=== PATIENT | female | born 1995 | race Hispanic/Latino ===

== ENCOUNTER 2025-03-03 14:54 | Inpatient (IN) | payer BC ==
[2025-03-03] MEDS ORDERED: hydrALAZINE 20 MG/ML VIAL SLOW IVP PRN ×3 (15:25→23:58)
[2025-03-03] MEDS ORDERED: Acetaminophen 500 MG TAB PO PRN (15:39)
[2025-03-03] MEDS ORDERED: Carboprost 250 MCG/ML AMP IM PRN (15:39)
[2025-03-03] MEDS ORDERED: HYDROcodone/Acetaminophen 5/325 mg Tablet PO PRN ×2 (15:39)
[2025-03-03] MEDS ORDERED: Lidocaine 1% (PF) 30 ML VIAL SC PRN (15:39)
[2025-03-03] MEDS ORDERED: Methylergonovine 0.2 MG/ML VIAL IM PRN (15:39)
[2025-03-03 15:41] VITALS: BMI 31.8
[2025-03-03] MEDS ORDERED: Oxytocin 30 units/NS 500 ML 500 ML IV SCH (15:45)
[2025-03-03 15:52] LABS: Hematocrit 31.3 % (34.9-44.5); Hemoglobin 10.5 g/dL (12.0-15.5); Mean Corpuscular Hemoglobin 28.9 pg (27.0-33.0); Mean Corpuscular Volume 86.2 fL (81.6-98.3); Platelet Count 344 10x3/uL (150-450); Red Blood Cell (RBC) Count 3.63 10x6/uL (3.90-5.03); White Blood Cell (WBC) Count 10.59 10x3/uL (3.5-10.5)
[2025-03-03 17:10] LABS: Hep B Surf Ag - L&D Non-Reactive S/CO (NonReactive)
[2025-03-03 17:12] LABS: Syphilis Antibody Index 0.05 S/CO (<1.00 Non-Reactive)
[2025-03-03] MEDS: fentaNYL/Ropivacaine Epidural 100 ML ONE (17:26)
[2025-03-03] MEDS ORDERED: Ondansetron PF 4 MG/2 ML Vial IVP PRN (17:31)
[2025-03-03] MEDS ORDERED: diphenhydrAMINE 50 MG/ML VIAL IVP PRN (17:31)
[2025-03-03] MEDS ORDERED: Communication Order-Pharmacy FS SCH (17:45)
[2025-03-03] MEDS ORDERED: fentaNYL 2 mcg/Ropivacaine 0.2% Epidural 100 ML CADD EPIDURAL SCH (17:45)
[2025-03-03] MEDS: Ondansetron PF 4 MG/2 ML Vial IVP PRN (18:19)
[2025-03-03] MEDS: Oxytocin 30 units/NS 500 ML 500 ML IV SCH (21:23)
[2025-03-03 21:48] LABS: Analyzer IN Cardio CS NICU; RapidComm Collect By RN; pH (Cord, venous) 7.381 (7.250-7.350)
[2025-03-03 21:53] LABS: Analyzer IN Cardio CS NICU; RapidComm Collect By RN
[2025-03-03] MEDS: Ibuprofen 800 MG TAB PO PRN (22:59)
[2025-03-03] MEDS ORDERED: Bisacodyl 10 MG SUPP PR PRN (23:58)
[2025-03-03] MEDS ORDERED: Preparation H Ointment 28 GM TUBE PR PRN (23:58)
[2025-03-03] MEDS ORDERED: Milk Of Magnesia 30 ML UDCUP PO PRN (23:58)
[2025-03-04] MEDS: Ibuprofen 800 MG TAB PO SCH (05:46)
[2025-03-04] MEDS: Acetaminophen 325 MG TAB PO PRN (07:13)
[2025-03-04] MEDS: Boostrix 0.5 ML (Tdap) VIAL (>/=7 yrs of age) IM ONE (07:34)
[2025-03-04] MEDS: Ferrous Sulfate 325 MG TAB PO SCH (07:34)
[2025-03-04] MEDS ORDERED: HYDROcodone/Acetaminophen 5/325 mg Tablet PO PRN (09:15)
[2025-03-04] MEDS: HYDROcodone/Acetaminophen 5/325 mg Tablet PO PRN (09:18)
[2025-03-04] MEDS: Benzocaine-Menthol 82.5 ML CAN TOP PRN (09:18)
[2025-03-04] MEDS: Methylergonovine 0.2 MG/ML VIAL IM SCH (12:57)
[2025-03-04] MEDS ORDERED: Methylergonovine 0.2 MG TAB PO PRN (14:37)
[2025-03-04] MEDS ORDERED: Bupivacaine 0.25% HCL 30 ML VIAL ONE (18:19)
[2025-03-04 19:50] VITALS: TEMP 98.2
[2025-03-05 10:14] VITALS: BP 109/65
== END 2025-03-05 11:45 | disposition home or self-care (01) | DRG 807 ==
LOC: CSHLD/OP 14:54 → CSHLD 17:50 → CSHPP 23:49
PROVIDERS: ADMIT Obstetrics & Gynecology; ATTEND Obstetrics & Gynecology
PROC: 10E0XZZ Delivery of Products of Conception, External Approach (ICD-10-PCS; principal; 2025-03-03)
PROC: 10907ZC Drainage of Amniotic Fluid, Therapeutic from Products of Conception, Via Natural or Artificial Opening (ICD-10-PCS; 2025-03-03)
PROC: 10H07YZ Insertion of Other Device into Products of Conception, Via Natural or Artificial Opening (ICD-10-PCS; 2025-03-03)
DX: O77.0 Labor and delivery complicated by meconium in amniotic fluid (principal); Z37.0 Single live birth; Z3A.38 38 weeks gestation of pregnancy; O69.81X0 Labor and delivery complicated by cord around neck, without compression, not applicable or unspecified; Z79.899 Other long term (current) drug therapy; O76 Abnormality in fetal heart rate and rhythm complicating labor and delivery
CPT/HCPCS: 51702; 82805; 85027; 86780; 86850; 86900; 86901; 87340; 99285; J0665; J2210; J2405; J2590